=== PATIENT | female | born 1995 | race Hispanic/Latino ===

== ENCOUNTER 2022-09-19 14:26 | Emergency (ER) | payer MEDICAID, OTHER ==
[~2022-09-19] VITALS: Ht 162.6 cm; Wt 89.4 kg
[~2022-09-19 14:26] MED LIST: ACET-2743 PO; PNV1TABL17 PO
[2022-09-19] MEDS ORDERED: ONDANSETRON ODT 4MG TAB ONE (14:56)
[2022-09-19] MEDS ORDERED: ONDANSETRON 4MG TABLET PO ONE (15:00)
[2022-09-19] MEDS ORDERED: FAMOTIDINE 20MG TAB PO ONE (15:00)
[2022-09-19] MEDS ORDERED: LIDOCAINE HCL 2% VISCOUS 15 ML UDCUP PO ONE (15:00)
[2022-09-19] MEDS ORDERED: DICYCLOMINE HCL 10 MG/5 ML ML PO ONE (15:00)
[2022-09-19] MEDS ORDERED: MAG/ALUM/SIMETH 30 ML UDCUP PO ONE (15:00)
[2022-09-19 15:05] LABS: HEMATOCRIT 44.8 % (36-48); MEAN CORPUSCULAR HEMOGLOBIN 28.3 pg (27.0-33.0); MEAN CORPUSCULAR HGB CONC 34.2 g/dL (32.0-36.0); MEAN CORPUSCULAR VOLUME 82.8 fL (79-99); PLATELET COUNT (AUTO) 261 K/uL (130-400); RED BLOOD CELL COUNT(AUTO) 5.41 MIL/uL (4.00-5.50); RED CELL DISTRIBUTION WIDTH 12.5 % (11.0-15.5); WHITE BLOOD COUNT (AUTO) 18.5 K/uL (4.8-10.8)
[2022-09-19 15:24] LABS: ALANINE AMINOTRANSFERASE 34 U/L (12-78); ALBUMIN 4.4 g/dL (3.5-5.0); ASPARTATE AMINOTRANSFERASE 19 U/L (10-37); CARBON DIOXIDE 26 mmol/L (21-32); CHLORIDE 98 mmol/L (101-111); CREATININE 0.9 mg/dL (0.5-1.5); GLOMERULAR FILTR. RATE CALC 80 mL/min (>60); GLUCOSE,RANDOM 122 mg/dL (70-105); POTASSIUM 4.5 mmol/L (3.5-5.1); SODIUM SERUM 134 mmol/L (136-145); TOTAL PROTEIN, SERUM 8.6 g/dL (6.0-8.3); UREA NITROGEN, BLOOD 14 mg/dL (7-18)
[2022-09-19 15:27] LABS: LIPASE < 50 U/L (114-286)
[2022-09-19 15:32] LABS: APPEARANCE,URINE CLEAR (CLEAR); BILIRUBIN,URINE SMALL mg/dL (NEGATIVE); COLOR,URINE YELLOW (YELLOW); GLUCOSE, URINE (UA) NEGATIVE (NEGATIVE); KETONES,URINE 5 mg/dL (NEGATIVE); LEUKOCYTE ESTERASE ,URINE NEGATIVE Leu/uL (NEGATIVE); NITRATE,URINE POSITIVE (NEGATIVE); OCCULT BLOOD,URINE NEGATIVE (NEGATIVE); PH,URINE 5.5 (5.0-8.0); PROTEIN,URINE TRACE mg/dL (NEGATIVE)
[2022-09-19 15:59] LABS: HCG,QUALITATIVE URINE NEGATIVE (NEGATIVE)
[2022-09-19] MEDS ORDERED: FAMO-136 PO (16:10)
[2022-09-19] MEDS ORDERED: ONDA4TAB10 PO (16:10)
[2022-09-19] MEDS ORDERED: CEPH500B PO (16:10)
[2022-09-19 16:11] VITALS: BP 132/81
[2022-09-19] MEDS ORDERED: CEFTRIAXONE 1G VIAL IM ONE (16:30)
[2022-09-19 16:54] LABS: SQUAMOUS EPITHELIAL CELL,UR Few /HPF (0-2)
[2022-09-19 16:55] LABS: BACTERIA,URINE Few /HPF (None Seen)
[2022-09-19 17:31] LABS: LYMPHOCYTES % (AUTO) 4.7 % (21.0-51.0); NEUTROPHILS % (AUTO) 85.9 % (40.0-77.0)
[2022-09-19 17:32] LABS: BASOPHILS % (AUTO) 0.3 % (0.0-5.0); MONOCYTES % (AUTO) 8.6 % (3.0-13.0)
== END 2022-09-19 16:21 | disposition home or self-care (01) ==
LOC: EDH 14:26
DX: N39.0 Urinary tract infection, site not specified (principal); K29.70 Gastritis, unspecified, without bleeding; Z88.0 Allergy status to penicillin; Z90.49 Acquired absence of other specified parts of digestive tract
CPT/HCPCS: 99284; 80053; 83690; 85025; 87088; 81001; 81025; 36415; 96372; J0696